=== PATIENT | male | born 1960 | race Caucasian/White ===

== ENCOUNTER 2018-08-20 12:53 | Emergency (ER) | payer BC ==
[~2018-08-20] VITALS: Ht 182.9 cm; Wt 125.0 kg
[2018-08-20 12:55] VITALS: TEMP 98
[2018-08-20] MEDS ORDERED: ZYRTEC 10MG10 MG PO (13:20)
[2018-08-20] MEDS ORDERED: MULTI VITAMINS1 TAB PO (13:20)
[2018-08-20] MEDS ORDERED: PRILOSEC 20MG20 MG PO (13:21)
[2018-08-20] MEDS ORDERED: GLUCOSAMINE SU500 M2 PO (13:22)
[2018-08-20 13:39] LABS: BASO % 0.7 % (0.0-2.0); EOS # 0.5 (0.0-0.7); EOS % 8.8 % (0-4.0); GRAN # 2.4 (1.4-6.5); GRAN % 39.1 % (42.2-75.2); HEMATOCRIT 42.4 % (42.0-52.0); HEMOGLOBIN 14.6 g/dl (13.5-18.0); LYMPH # 2.4 (1.2-3.4); LYMPH % 39.2 % (20.0-51.0); MEAN CELL VOLUME 93 fl (80.0-100.0); MEAN CORPUSCULAR HEMOGLOBIN 32 pg (27.0-31.0); MEAN CORPUSCULAR HGB CONC 34 g/dl (33.0-37.0); MEAN PLATELET VOLUME 9.1 fl (7.4-10.4); MONO # 0.7 (0.1-0.6); MONO % 11.9 % (1.7-9.3); PLATELET COUNT 209 K/mm3 (130-400); RED BLOOD COUNT 4.54 M/mm3 (4.20-5.60)
[2018-08-20 13:48] LABS: ALANINE AMINOTRANSFERASE 24 U/L (21-72); ALBUMIN 3.8 gm/dL (3.5-5.0); ALKALINE PHOSPHATASE 71 U/L (50-136); ANION GAP 7 mmol/L (7-16); AST,SGOT 34 U/L (15-37); BILIRUBIN,TOTAL 0.5 mg/dL (0.0-1.0); BLOOD UREA NITROGEN 14 mg/dL (9-20); CALCIUM 9.1 mg/dL (8.4-10.2); CARBON DIOXIDE 26 mmol/L (22-30); CHLORIDE 105 mmol/L (98-107); CREATININE, serum 0.93 (0.66-1.25); GLUCOSE 86 mg/dL (74-106); LIPASE 146 U/L (23-300); SODIUM 138 mmol/L (137-145); TOTAL PROTEIN 7.3 gm/dL (6.4-8.2)
[2018-08-20 14:01] LABS: TROPONIN-I < 0.012 ng/mL (0.000-0.035)
[2018-08-20] MEDS ORDERED: ANTIVERT 25MG25 MG PO (16:19)
[2018-08-20 16:28] VITALS: BP 117/82; PULSE 66
== END 2018-08-20 16:29 | disposition home or self-care (01) ==
LOC: COL.ER 12:53
PROVIDERS: Emergency Medicine
DX: R42 Dizziness and giddiness (principal)